=== PATIENT | female | born 2000 | race Caucasian/White ===

== ENCOUNTER 2021-08-14 21:15 | Emergency (ER) | payer BC, SELFPAY ==
--- NOTE | ~2021-08-14 | XR_ITS ---
EXAMINATION: XR chest 2V DATE: 08/14/2021 22:05 INDICATION: Generalized chest pain and shortness of breath TECHNIQUE: PA and lateral views of the chest are obtained. COMPARISON: None available FINDINGS: The lungs are free of acute opacities. There is no pleural effusion or pneumothorax. The ca rdiomediastinal silhouette is normal. The visualized bones and soft tissues are unremarkable. IMPRESSION: 1. No acute cardiopulmonary abnormality. Reviewed, dictated and finalized at location [facility]
[2021-08-14 21:30] VITALS: BP 131/78; PULSE 92; RESP 20; TEMP 36.6; O2SAT 100
--- NOTE | 2021-08-14 21:39 | ECG_ITS ---
Measurements Intervals [place] Rate: 95 P: 45 AK: 157 QRS: -1 QRSD: 93 T: 21 QT: 336 QTc: 424 Interpretive Statements SINUS RHYTHM DELAYED PRECORDIAL R/S TRANSITION BASELINE ARTIFACT- I, II, III, AVR, AVF, V1-V6 BORDERLINE ECG Electronically Signed On 08-15-2021 6:15:31 LEAD AUDITOR by Harjinder Vazquez D.O.
[2021-08-14 21:50] VITALS: BP 125/71; PULSE 89; RESP 18; O2SAT 98
--- NOTE | 2021-08-14 22:25 | ED.SOB ---
HPI - SOB/Dyspnea General Chief Complaint: Shortness of Breath/Dyspnea Stated Complaint: chest pain, sob Time Seen by Provider: 08/14/21 21:41 Source: patient Mode of arrival: ambulatory Limitations: no limitations History of Present Illness HPI Narrative: This is a 20 year old female that presents to the ER for chest pain ongoing since this morning. Reports she had been very upset and crying. She started to feel chest tightness after that and shortness of breath. This has been ongoing since. Reports she also started to get a migraine. She took her sumatriptan with relief of her migraine, but has had ongoing chest pain. It is improving and now mild. Denies fever, cough or lower extremity edema. Related Data Allergies Allergy/AdvReac Type Severity Reaction Status Date / Time No Known Allergies Allergy Verified 08/14/21 21:32 Review of Systems Review of Systems: CONSTITUTIONAL: Denies fever CARDIOVASCULAR: Reports chest pain. Denies edema. RESPIRATORY: Reports dyspnea. Denies cough All systems reviewed & are unremarkable except as noted in HPI and below PMFSH Past Medical History Medical History (Updated 08/15/21 @ 00:55 by Sandra Celestin PA-C) History of asthma History of migraine Social History Social History (Updated 08/14/21 @ 22:27 by Sandra Celestin PA-C) Substance use: never Exam Narrative: GENERAL: Well-appearing, well-nourished, and in no acute distress. HEAD: Normocephalic, atraumatic. EYES: EOMI. ENT: Mucous membranes moist. Oropharynx without tonsillar hypertrophy exudate or other lesions. CHEST: Clear to auscultation. No respiratory distress. No wheezes rales or rhonchi HEART: Regular rate and rhythm. No murmur heard. Normal peripheral pulses. EXTREMITIES: Normal range of motion. No edema. SKIN: Warm, dry, no rash. NEURO: No focal deficits. Alert and oriented x3. PSYCH: Normal mood and affect Course Vital Signs Vital signs: Vital Signs Temperature 97.9 F 08/14/21 21:30 Pulse Rate 92 08/14/21 21:30 Respiratory Rate 20 08/14/21 21:30 Blood Pressure 131/78 08/14/21 21:30 Pulse Oximetry 100 08/14/21 21:30 Temperature 97.9 F 08/14/21 21:30 Pulse Rate 89 08/14/21 21:50 Respiratory Rate 18 08/14/21 21:50 Blood Pressure 125/71 08/14/21 21:50 Pulse Oximetry 98 08/14/21 21:50 MDM - SOB/Dyspnea MDM Narrative Medical decision making narrative: Patient presents to the emergency department for chest pain ongoing since this morning. Patient's vitals are stable. Lungs are clear on exam. CBC and metabolic panel without concerning findings. Bedside test is negative. EKG without concerning ST changes and baseline troponin is negative. D-dimer is not elevated. Chest x-ray without acute cardiopulmonary abnormality. Patient reports relief in her pain without intervention. Her heart score is a 2. She is stable and felt appropriate for further outpatient evaluation. Instructed to have close follow-up with her primary doctor. She was given warnings to return to the ER Lab Data Attestation: I reviewed the patient's lab results. Result diagrams: 08/14/21 22:59 08/14/21 22:59 Labs: Lab Results 08/14/21 08/14/21 08/14/21 Range/Units 22:59 22:59 22:59 WBC 6.3 (4.5-10.0) K/mm3 RBC 4.33 (4.2-5.4) M/mm3 Hgb 13.4 (12.0-15.0) g/dL Hct 39.6 (37.0-47.0) % MCV 91.5 (80-100) fl MCH 30.9 (26-34) pg MCHC 33.8 (32-36) g/dl RDW 12.5 (11.5-14.5) % Plt Count 278 (150-375) k/mm3 MPV 9.5 (7.4-10.4) fl Immature Gran % (Auto) 0.0 (0-0.5) % Neut % (Auto) 52.2 (45.5-73.1) % Lymph % (Auto) 39.0 (18.3-44.2) % Edmunds % (Auto) 7.1 (2.6-8.5) % Eos % (Auto) 1.1 (0-4.4) % Baso % (Auto) 0.6 (0.2-1.2) % Lymph # (Auto) 2.47 (0.9-3.2) K/mm3 Edmunds # (Auto) 0.5 (0.1-0.6) K/mm3 Eos # (Auto) 0.1 (0-0.3) K/mm3 Baso # (Auto) 0.0 (0.0-0.1) K/mm3 Abs Immat Gran
[2021-08-14 23:14] LABS: Basophils Percent Auto 0.6 % (0.2-1.2); Eosinophils Absolute Auto 0.1 K/mm3 (0-0.3); Eosinophils Percent Auto 1.1 % (0-4.4); Hematocrit 39.6 % (37.0-47.0); Hemoglobin 13.4 g/dL (12.0-15.0); Lymphocytes Absolute Auto 2.47 K/mm3 (0.9-3.2); Mean Corpuscular HGB Conc 33.8 g/dl (32-36); Mean Corpuscular Hemoglobin 30.9 pg (26-34); Mean Corpuscular Volume 91.5 fl (80-100); Mean Platelet Volume 9.5 fl (7.4-10.4); Monocytes Absolute Auto 0.5 K/mm3 (0.1-0.6); Monocytes Percent Auto 7.1 % (2.6-8.5); Neutrophils Absolute Auto 3.3 K/mm3 (1.3-6.7); Neutrophils Percent Auto 52.2 % (45.5-73.1); Platelet Count Result 278 k/mm3 (150-375); Red Blood Count 4.33 M/mm3 (4.2-5.4); Red Cell Distribution Width 12.5 % (11.5-14.5); White Blood Count 6.3 K/mm3 (4.5-10.0)
[2021-08-14 23:23] LABS: Partial Thromboplastin Time 29.3 SECONDS (22.3-36.8); Prothrombin Time 12.5 Seconds (11.1-14.7)
[2021-08-14 23:26] LABS: D Dimer 0.28 ug/mL (<0.48)
[2021-08-14 23:30] LABS: Alanine Aminotransferase 26 U/L (4-35); Albumin Level 4.2 g/dL (3.5-5.1); Alkaline Phosphatase 70 U/L (38-126); Anion Gap 7 mmol/L (8-16); Aspartate Amino Transferase 24 U/L (14-36); Bilirubin,Total 0.7 mg/dL (0.2-1.3); Blood Urea Nitrogen 9 mg/dL (7-17); Calcium 10.2 mg/dL (8.4-10.2); Carbon Dioxide 23 mmol/L (22-30); Chloride 109 mmol/L (98-107); Estimated CRCL calculation 127 ml/min; Estimated Glomerular Filt Rate > 60; Glucose 97 mg/dL (65-110); Lipase 61 U/L (23-300); Potassium 3.5 mmol/L (3.4-5.0); Sodium 139 mmol/L (137-145)
[2021-08-14 23:42] LABS: Troponin I < 0.012 ng/mL (0.000-0.034)
[2021-08-15 01:04] VITALS: BP 119/78; PULSE 88; RESP 16; O2SAT 100
== END 2021-08-15 01:04 | disposition home or self-care (01) ==
PROVIDERS: Physician Assistant; Emergency Provider Emergency Medicine
DX: R07.89 Other chest pain (principal); J45.909 Unspecified asthma, uncomplicated; R94.31 Abnormal electrocardiogram [ECG] [EKG]
CPT/HCPCS: 36415; 71046; 80053; 81025; 83690; 84484; 85025; 85380; 85610; 85730; 93005; 99284